=== PATIENT | female | born 1990 | race African-American/Black ===

== ENCOUNTER 2016-10-12 00:11 | Observation (INO) | payer MEDICAID, OTHER ==
[~2016-10-12] VITALS: Ht 157.5 cm; Wt 78.5 kg
[2016-10-12] MEDS ORDERED: PREN-88 PO (00:53)
== END 2016-10-12 01:51 | disposition home or self-care (01) ==
LOC: L&D 00:11
PROVIDERS: ADMIT Obstetrics & Gynecology; ATTEND Obstetrics & Gynecology
DX: Z34.90 Encounter for supervision of normal pregnancy, unspecified, unspecified trimester (principal); Z3A.00 Weeks of gestation of pregnancy not specified
CPT/HCPCS: 99281; G0378

== ENCOUNTER 2016-11-01 16:56 | Observation (INO) | payer OTHER ==
[~2016-11-01] VITALS: Ht 157.5 cm; Wt 82.1 kg
[~2016-11-01 16:56] MED LIST: PREN-88 PO
== END 2016-11-01 20:00 | disposition home or self-care (01) ==
LOC: L&D 16:56
PROVIDERS: ADMIT Specialist; ATTEND Specialist
DX: O26.893 Other specified pregnancy related conditions, third trimester (principal); R10.9 Unspecified abdominal pain; N89.8 Other specified noninflammatory disorders of vagina; Z3A.30 30 weeks gestation of pregnancy
CPT/HCPCS: 76815; 99281; G0378

== ENCOUNTER 2016-12-05 13:11 | Observation (INO) | payer OTHER ==
[~2016-12-05] VITALS: Ht 157.5 cm; Wt 81.6 kg
== END 2016-12-05 14:40 | disposition home or self-care (01) ==
LOC: L&D 13:11
PROVIDERS: ADMIT Obstetrics & Gynecology; ATTEND Obstetrics & Gynecology
DX: O26.893 Other specified pregnancy related conditions, third trimester (principal); R10.30 Lower abdominal pain, unspecified; Z3A.35 35 weeks gestation of pregnancy
CPT/HCPCS: 99281; G0378

== ENCOUNTER 2017-01-15 18:57 | Inpatient (IN) | payer MEDICAID, OTHER ==
[~2017-01-15] VITALS: Ht 157.5 cm; Wt 88.5 kg
[2017-01-15] MEDS ORDERED: BUTORPHANOL TARTRATE 2 MG/ML VIAL IV PRN (22:15)
[2017-01-15] MEDS ORDERED: NALOXONE HCL 0.4 MG/ML 1ML VIAL IM PRN (22:15)
[2017-01-15] MEDS ORDERED: LIDOCAINE HCL 1% 20ML VIAL (Pyxis) INJ INFIL SCH (22:15)
[2017-01-15] MEDS ORDERED: MISOPROSTOL 100MCG TABLET VG SCH (22:15)
[2017-01-15] MEDS ORDERED: CARBOPROST TROMETHAMINE 250 MCG/ML AMPUL IM PRN (22:15)
[2017-01-15] MEDS ORDERED: LACTATED RINGERS 1,000 ML IV SCH (22:15)
[2017-01-15] MEDS ORDERED: DEXT 5%/LR + PITOCIN 20UNITS/L 1,000 ML IV SCH (22:15)
[2017-01-15] MEDS ORDERED: METHYLERGONOVINE MALEATE 0.2 MG/ML IM PRN (22:15)
[2017-01-15 22:35] LABS: CLARITY URINE CLOUDY (CLEAR); COLOR URINE YELLOW (YELLOW); GLUCOSE URINE NEGATIVE (NEGATIVE); KETONES URINE NEGATIVE (NEGATIVE); LEUKOCYTE ESTERASE URINE 2+ (NEGATIVE); NITRITE URINE NEGATIVE (NEGATIVE); OCCULT BLOOD URINE NEGATIVE (NEGATIVE); PH URINE 6.5 (4.5-8.0); PROTEIN URINE NEGATIVE (NEGATIVE); SPECIFIC GRAVITY URINE 1.012 (1.005-1.030); UROBILINOGEN URINE 0.2 E.U./dL (0.2-1.0)
[2017-01-15 22:36] LABS: BASOPHILS % 0.1 % (0.0-2.0); EOSINOPHILS % 2.1 % (0.0-5.0); HEMATOCRIT. 34.1 % (36.0-48.0); HEMOGLOBIN. 11.3 g/dL (12.0-16.0); LYMPHOCYTES % 20.9 % (20.0-50.0); MEAN CORPUSCULAR HEMOGLOBIN 29.2 pg (28.0-32.0); MEAN CORPUSCULAR VOLUME 87.8 fL (81.0-99.0); MEAN PLATELET VOLUME 8.4 fl (7.4-10.4); MONOCYTES % 10.4 % (2.0-8.0); NEUTROPHILS % 66.5 % (40.0-76.0); PLATELET 236 x1000/uL (130-400); RED BLOOD CELL COUNT 3.88 mill/uL (4.2-5.4); RED CELL DISTRIBUTION WIDTH 13.7 % (11.6-14.6)
[2017-01-15 22:42] LABS: INR 0.9; PARTIAL THROMBOPLASTIN TIME 28.2 sec (23.4-31.0); PROTHROMBIN TIME 9.7 sec (9.4-11.6)
[2017-01-15] MEDS ORDERED: MIDAZOLAM HCL 2 MG/2 ML VIAL ONE (22:43)
[2017-01-15] MEDS ORDERED: FENTANYL CITRATE/PF 50MCG/ML 2ML VIAL ONE (22:43)
[2017-01-15] MEDS ORDERED: MORPHINE SULFATE/PF 1MG/ML 10ML AMP ONE (22:43)
[2017-01-15] MEDS ORDERED: OXYTOCIN 10 UNITS/ML 1ML ONE (22:46)
[2017-01-15] MEDS ORDERED: ONDANSETRON HCL 4MG/2ML VIAL ONE (22:46)
[2017-01-15] MEDS ORDERED: CEFAZOLIN 2000MG PREMIX 100 ML IV ONE (22:46)
[2017-01-15] MEDS ORDERED: EPHEDRINE SULFATE 50MG/ML VIAL ONE (22:46)
[2017-01-15] MEDS ORDERED: SODIUM CHLORIDE 0.9% 10ML VIAL ONE (22:46)
[2017-01-15] MEDS ORDERED: PHENYLEPHRINE HCL 10 MG/ML 1ML (IV VIAL) IV ONE (22:46)
[2017-01-15] MEDS ORDERED: DEXAMETHASONE 4MG/ML 1ML VIAL ONE (22:46)
[2017-01-15 22:49] LABS: *AMPHETAMINES SCREEN URINE NEGATIVE (NEGATIVE); *BARBITURATES SCREEN URINE NEGATIVE (NEGATIVE); *BENZODIAZEPINES SCREEN URINE NEGATIVE (NEGATIVE); *COCAINE SCREEN URINE NEGATIVE (NEGATIVE); CANNABINOID URINE SCREEN NEGATIVE (NEGATIVE); METHADONE URINE SCREEN NEGATIVE (NEGATIVE); OPIATES URINE SCREEN NEGATIVE (NEGATIVE); PHENCYCLIDINE URINE SCREEN NEGATIVE (NEGATIVE)
[2017-01-15 23:16] LABS: HEPATITIS B SURFACE ANTIGEN NEGATIVE
[2017-01-16] MEDS ORDERED: DIPHENHYDRAMINE 50MG/ML VIAL IV PRN (01:00)
[2017-01-16] MEDS ORDERED: NALOXONE HCL 0.4 MG/ML 1ML VIAL IV PRN (01:00)
[2017-01-16] MEDS ORDERED: ONDANSETRON HCL 4MG/2ML VIAL IV PRN ×2 (01:00→01:15)
[2017-01-16] MEDS ORDERED: DEXT 5%/LR + PITOCIN 20UNITS/L 1,000 ML IV SCH (01:04)
[2017-01-16] MEDS ORDERED: IBUPROFEN 400MG TABLET PO PRN (01:15)
[2017-01-16] MEDS ORDERED: RHO(D) IMMUNE GLOBULIN 300 MCG/SYR IM PRN (01:15)
[2017-01-16] MEDS ORDERED: LANOLIN OINT 0.25 GM TUBE TOP PRN (01:15)
[2017-01-16 04:30] VITALS: BP 100/70
[2017-01-16 05:00] VITALS: BP 103/53
[2017-01-16 05:30] VITALS: BP 113/58
[2017-01-16 08:46] VITALS: BP 110/62
[2017-01-16] MEDS ORDERED: PRENATAL VIT/FE FUMARATE/FA TABLET PO SCH (09:00)
[2017-01-16] MEDS: KETOROLAC 30MG/ML VIAL IV SCH ×3 (09:08→23:35)
[2017-01-16 12:05] LABS: HEMATOCRIT. 30.4 % (36.0-48.0); HEMOGLOBIN. 10.1 g/dL (12.0-16.0); MEAN CORPUSCULAR HEMOGLOBIN 29.2 pg (28.0-32.0); MEAN CORPUSCULAR VOLUME 87.7 fL (81.0-99.0); MEAN PLATELET VOLUME 8.4 fl (7.4-10.4); PLATELET 217 x1000/uL (130-400); RED BLOOD CELL COUNT 3.47 mill/uL (4.2-5.4); RED CELL DISTRIBUTION WIDTH 13.7 % (11.6-14.6)
[2017-01-16 15:58] VITALS: BP 101/52
[2017-01-16 20:00] VITALS: BP 99/64
[2017-01-16] MEDS: DOCUSATE SODIUM 100MG CAPSULE PO SCH (21:00)
[2017-01-16 23:15] LABS: PLATELET ESTIMATE NORMAL
[2017-01-17] VITALS: BP 100/65
[2017-01-17 04:00] VITALS: BP 102/66
[2017-01-17 08:30] VITALS: BP 101/50
[2017-01-17] MEDS: IBUPROFEN 800MG TABLET PO PRN ×2 (15:00→20:20)
[2017-01-17 17:51] VITALS: BP 99/66
[2017-01-17 20:10] VITALS: BP 112/61
[2017-01-17] MEDS: DOCUSATE SODIUM 100MG CAPSULE PO SCH (20:21)
[2017-01-17 23:45] VITALS: BP 108/58
[2017-01-18 03:55] VITALS: BP 119/73
[2017-01-18 08:00] VITALS: BP 126/78
== END 2017-01-18 12:00 | disposition home or self-care (01) | DRG 540 ==
LOC: L&D 18:57 → OBSVTOIN 18:57 → 7EST PP/OB 01-16 04:00
PROVIDERS: ADMIT Obstetrics & Gynecology; ATTEND Obstetrics & Gynecology
PROC: 10D00Z1 Extraction of Products of Conception, Low, Open Approach (ICD-10-PCS; principal; 2017-01-15 23:12)
DX: O48.0 Post-term pregnancy (principal); D62 Acute posthemorrhagic anemia; O99.02 Anemia complicating childbirth; O03.9 Complete or unspecified spontaneous abortion without complication; O76 Abnormality in fetal heart rate and rhythm complicating labor and delivery; Z3A.41 41 weeks gestation of pregnancy; Z37.0 Single live birth
CPT/HCPCS: 36415; 80305; 81001; 85025; 85610; 85730; 86592; 86703; 86762; 86850; 86900; 87340; 88307; A4216; J0171; J0690; J1100; J1885; J2250; J2274; J2370; J2405; J2590; J3010; J7120; A4315

== ENCOUNTER 2017-01-24 12:03 | Emergency (ER) | payer OTHER, MEDICAID ==
[~2017-01-24] VITALS: Ht 157.5 cm; Wt 71.0 kg
[2017-01-24] MEDS ORDERED: ONDANSETRON HCL 4MG/2ML VIAL IV STA (14:42)
[2017-01-24] MEDS ORDERED: SODIUM CHLORIDE 0.9% 1,000 ML IV ONE (14:42)
[2017-01-24] MEDS ORDERED: FAMOTIDINE 20MG/2ML VIAL IV ONE (14:45)
[2017-01-24] MEDS ORDERED: MORPHINE SULFATE 4 MG/ML CPJ (NOT FOR IM USE) IV ONE ×2 (14:45→18:30)
[2017-01-24 15:15] LABS: BASOPHILS % 0.5 % (0.0-2.0); EOSINOPHILS % 1.9 % (0.0-5.0); HEMATOCRIT. 33.7 % (36.0-48.0); HEMOGLOBIN. 11.1 g/dL (12.0-16.0); LYMPHOCYTES % 12.2 % (20.0-50.0); MEAN CORPUSCULAR HEMOGLOBIN 28.9 pg (28.0-32.0); MEAN CORPUSCULAR VOLUME 87.7 fL (81.0-99.0); MEAN PLATELET VOLUME 7.3 fl (7.4-10.4); MONOCYTES % 7.1 % (2.0-8.0); NEUTROPHILS % 78.3 % (40.0-76.0); PLATELET 439 x1000/uL (130-400); RED BLOOD CELL COUNT 3.84 mill/uL (4.2-5.4); RED CELL DISTRIBUTION WIDTH 13.3 % (11.6-14.6)
[2017-01-24 15:30] LABS: CARBON DIOXIDE 22 mEq/L (21-32); CHLORIDE 107 mEq/L (98-107)
[2017-01-24 17:00] LABS: CLARITY URINE TURBID (CLEAR); COLOR URINE RED (YELLOW); GLUCOSE URINE NEGATIVE (NEGATIVE); KETONES URINE 2+ (NEGATIVE); LEUKOCYTE ESTERASE URINE 3+ (NEGATIVE); NITRITE URINE NEGATIVE (NEGATIVE); OCCULT BLOOD URINE 3+ (NEGATIVE); PH URINE 5.5 (4.5-8.0); PROTEIN URINE 2+ (NEGATIVE); SPECIFIC GRAVITY URINE 1.022 (1.005-1.030); UROBILINOGEN URINE 0.2 E.U./dL (0.2-1.0)
[2017-01-24] MEDS ORDERED: ONDANSETRON HCL 4MG/2ML VIAL IV ONE (18:30)
[2017-01-24 19:01] VITALS: BP 96/54
== END 2017-01-24 20:21 | disposition home or self-care (01) ==
LOC: ER 13:34
DX: N39.0 Urinary tract infection, site not specified (principal)
CPT/HCPCS: 36415; 74000; 80053; 81001; 81025; 83690; 85025; 96361; 96374; 96375; 96376; 99285; J2270; J2405; J3490; J7030; Z7610

== ENCOUNTER 2017-10-27 21:01 | Emergency (ER) | payer OTHER, MEDICAID ==
[~2017-10-27] VITALS: Ht 157.5 cm; Wt 75.0 kg
[2017-10-27 21:07] VITALS: BP 122/68
== END 2017-10-28 00:02 | disposition left against medical advice (07) ==
LOC: ER 21:01
DX: Z53.21 Procedure and treatment not carried out due to patient leaving prior to being seen by health care provider (principal)